=== PATIENT | male | born 1965 | race African-American/Black ===

== ENCOUNTER 2022-07-05 08:36 | Emergency (ER) | payer OTHER ==
[2022-07-05] MEDS ORDERED: Fluorescein Opthalmic Strip ONE ×2 (11:28→11:54)
[2022-07-05] MEDS ORDERED: Proparacaine 0.5% Opth 15 ML BOT ONE (11:28)
== END 2022-07-05 12:23 | disposition home or self-care (01) ==
LOC: ERS 08:36
DX: T15.02XA Foreign body in cornea, left eye, initial encounter (principal); W22.8XXA Striking against or struck by other objects, initial encounter
CPT/HCPCS: 99283